=== PATIENT | male | born 1975 | race Caucasian/White ===

== ENCOUNTER 2019-10-07 11:24 | Emergency (ER) | payer MEDICARE, SELFPAY ==
[2019-10-07 11:25] VITALS: BP 190/138; PULSE 116; RESP 17; TEMP 36.2; O2SAT 97; BMI 43.9
--- NOTE | 2019-10-07 11:34 | ED_ITS ---
Entered by Pinky Norman, acting as scribe for Jose Medley DO Oct 07, 2019 11:24 HPI - Back Pain/Injury General: Chief Complaint: Back Pain/Injury Stated Complaint: BACK PAIN Time Seen by Provider: 10/07/19 11:26 History of Present Illness: HPI Narrative: 44 yo male presents with back pain. pt states that he stepped on a rug and he almost fell. Pt states that he has had pain ever since. Pt states that he has issues with sciatica. MD elicited complaint: back injury Onset (ago): day(s) Timing: constant Severity: moderate Quality: sharp Exacerbating factors: walking Associated symptoms: Reports difficulty walking Review of Systems General: Reports: 10 or more systems reviewed and unremarkable except in HPI and below Musc: Reports: back pain and extremity swelling Neuro: Reports: difficulty walking PFS ED PFSH: Medical History (Updated 10/07/19 @ 12:20 by Jose Medley DO) Chronic back pain Renal calculus, left Surgical History (Updated 10/07/19 @ 12:14 by Pinky Norman) History of appendectomy Family History (Updated 09/12/19 @ 10:42 by YARELIS Casillas) Mother Diabetes Father Cancer Leukemia Grandmother Cancer Social History (Updated 09/12/19 @ 10:44 by YARELIS Casillas) Smoking and tobacco status: current every day smoker Alcohol intake: unknown Adopted: No Caregiver/support person: No Lives independently: No Household members: spouse Marital status: Current occupational status: disabled History of recent travel: No Physical Exam Const: COMMON NORMALS: no apparent distress, average body habitus, oriented x3, no limitations, healthy appearing, alert and well nourished HENMT: COMMON NORMALS: normocephalic, head/scalp atraumatic, hearing grossly normal bilaterally, external ears normal, EAC's normal, TM's normal bilaterally, external nose normal, nasal mucous membranes and turbinates normal, moist oral mucous membranes, oropharynx normal, dentition normal and gingiva normal HEAD & SCALP: normocephalic and atraumatic NOSE: external nose normal and nasal mucous membranes and turbinates normal EXTERNAL EAR: Yes external ears normal EXTERNAL AUDITORY CANAL: EAC's normal TYMPANIC MEMBRANE: TM's normal bilaterally Eye: COMMON NORMALS: PERRL, EOMs intact bilaterally, conjunctivae normal, no scleral icterus, no papilledema, normal visual handy by confrontation and fundi normal bilaterally CONJUNCTIVA: Yes conjunctivae normal PUPIL: Yes PERRL DIRECT OPHTHALMOSCOPY: Yes no papilledema and Yes fundi normal bilaterally Neck/C-Spine: COMMON NORMALS: full ROM, no lymphadenopathy, supple, no meningeal signs, no JVD, thyroid normal and no carotid bruits THYROID: thyroid normal Chest: COMMONS NORMALS: inspection of chest normal and palpation of chest normal Resp: COMMON NORMALS: normal respiratory effort, no retractions, no use of accessory muscles, clear to auscultation bilaterally and percussion normal AUSCULTATION: clear to auscultation bilaterally PERCUSSION: percussion normal Cardio: COMMON NORMALS: no JVD, regular rate, regular rhythm, S1 normal heart sound, S2 normal heart sound, no gallops, no clicks, no murmurs, no rub and peripheral pulses 2+ throughout RATE: regular rate RHYTHM: regular rhythm HEART SOUNDS: S1 normal and S2 normal PERIPHERAL PULSES: pulses 2+ throughout GI: COMMON NORMALS: normal to inspection, nondistended, normoactive bowel sounds, soft to palpation, non-tender, no hepatosplenomegaly, no masses and no bruits PALPATION: Yes soft and Yes no hepatosplenomegaly Back/Pelvis: GENERAL BACK: Yes tenderness Extremity: COMMON NORMALS: normal to inspection, full ROM, normal capillary refill, no joint enlargement, no clubbing, cyanosis or edema, no calf tenderness and no pedal edema Neuro: COMMON NORMALS: oriented x3 SENSORIUM/ORIENTATION: Yes alert MENINGEAL SIGNS: Yes no meningeal signs Skin: COMMON NORMALS: no rashes or lesions noted, no wounds, skin turgor normal, no jaundice, no petechiae and no mottling GENERAL SKIN EXAM: no rashes or lesions noted and turgor normal Course Vital Signs: Vital signs: Vital Signs Temperature 97.2 F L 10/07/19 11:25 Pulse Rate 116 H 10/07/19 11:25 Respiratory Rate 17 10/07/19 11:25 Blood Pressure 190/138 10/07/19 11:25 Pulse Oximetry 97 10/07/19 11:25 Discharge Plan Discharge Patient Disposition: Home, Self-Care Clinical Impression: Strain of lumbar region Qualifiers: Encounter type: initial encounter Qualified Code(s): S39.012A - Strain of muscle, fascia and tendon of lower back, initial encounter Condition: Stable Prescriptions: New hydrocodone-acetaminophen 5-325 mg tablet 1 tab PO Q4H PRN (Reason: pain) Qty: 10 RF: 0 Discharge Orders: Discharge Order (Routine); Ordered 10/07/19 Ordered By: Jose Medley Referrals: Abdiel Hilliard MD [Primary Care Provider] - Coding Level of Care Code ED Director Meetings for Chg Fwd Exam Comprehensive The documentation recorded by the Emerson castellano Kialy, accurately reflects the service I personally performed and the decisions made by , Jose Medley, Oct 07, 2019 11:24
--- NOTE | 2019-10-07 11:35 | XR_ITS ---
WS: [id number] XR lumbar spine 2-3V* [id number] REASON FOR EXAM: back pain FINDINGS: 5 functional lumbar vertebra as. The disc spaces and vertebral bodies are normal. There is increased lordosis seen. The lumbosacral angle show degenerate changes of the disc spaces. XR/XR lumbar spine 2-3V* [id number] IMPRESSION: Degenerated disc changes L5-S1 Increased lordosis.
[2019-10-07 12:24] VITALS: RESP 19; O2SAT 95
[2019-10-07] MEDS: morphine 4 mg/mL SDV 1 mL IM (12:24)
[2019-10-07 12:46] VITALS: BP 167/126; PULSE 108; RESP 17; O2SAT 95
== END 2019-10-07 12:46 | disposition home or self-care (01) ==
PROVIDERS: Emergency Provider Family Medicine; PCP Family Medicine
DX: S39.012A Strain of muscle, fascia and tendon of lower back, initial encounter (principal); F17.200 Nicotine dependence, unspecified, uncomplicated; X58.XXXA Exposure to other specified factors, initial encounter
CPT/HCPCS: 12345; 72100; 96372; 99281; 99283; J2270

== ENCOUNTER 2021-01-12 19:32 | Emergency (ER) | payer MEDICARE, SELFPAY ==
[2021-01-12 19:40] VITALS: BP 159/104; PULSE 74; RESP 18; TEMP 36.5; O2SAT 93; BMI 43.9
[2021-01-12 20:23] VITALS: BP 169/115; PULSE 80; RESP 20; O2SAT 94
--- NOTE | 2021-01-12 20:32 | ED_ITS ---
HPI - Abdominal Pain General: Chief Complaint: Abdominal Pain Stated Complaint: ab pain Time Seen by Provider: 01/12/21 19:49 Source: patient Mode of arrival: ambulatory Limitations: no limitations History of Present Illness: HPI narrative: 45-year-old male states that at 6:00 he started having sudden right upper quadrant abdominal pain. He states pain is very sharp in nature and rates it a 8 out of 10 currently. He states it is worse with palpation improved with some rest. Denies any pain with eating. He states he was having nausea. Denies any diarrhea. Denies any radiation of his pain. Associated Symptoms: Reports nausea and vomiting; Denies chills, dysuria and fever(s) Review of Systems Const: Denies: fever(s), chills, body aches or change in appetite Eyes: Denies: blurry vision or eye discomfort ENMT: Denies: throat pain or dental pain Card: Denies: chest pain Resp: Denies: dyspnea GI: Reports: abdominal pain, nausea and vomiting : Denies: dysuria Musc: Denies: neck pain or back pain Skin/Breast: Denies: rash Neuro: Denies: headache(s) Psych: Denies: depression Donovan/Lymph: Denies: easy bruising All/Imm: Denies: urticaria PFSH ED PFSH: Medical History Chronic back pain Renal calculus, left Surgical History History of appendectomy Family History Mother Diabetes Father Cancer Leukemia Grandmother Cancer Social History Smoking and tobacco status: current every day smoker Alcohol intake: unknown Adopted: No Caregiver/support person: No Lives independently: No Household members: spouse Marital status: Current occupational status: disabled History of recent travel: No Physical Exam Const: COMMON NORMALS: no acute distress, patient oriented x3 and healthy appearing HENMT: COMMON NORMALS: normocephalic and atraumatic HEAD & SCALP: normocephalic and atraumatic Eye: COMMON NORMALS: Equal, round and reactive pupils present and EOMs intact bilaterally PUPIL: Yes Equal, round and reactive pupils present Neck/C-Spine: COMMON NORMALS: full ROM and supple Chest: COMMONS NORMALS: normal inspection of the chest and normal palpation of entire chest wall Resp: COMMON NORMALS: normal respiratory effort, No retractions, No use of accessory muscles and clear to auscultation bilaterally AUSCULTATION: clear to auscultation bilaterally Cardio: COMMON NORMALS: regular rate, regular rhythm and No murmurs present (Cardio) RATE: regular rate RHYTHM: regular rhythm GI: COMMON NORMALS: Normal to inspection, nondistended, normoactive bowel sounds present, Soft to palpation and no masses PALPATION: Yes Soft to palpation and Yes Tenderness to palpation present (GI) Details: RUQ Extremity: COMMON NORMALS: normal to inspection and full ROM Neuro: COMMON NORMALS: patient oriented x3, moves all extremities and no focal motor deficits Psych: COMMON NORMALS: mental status grossly normal, Normal thought process present and cooperative THOUGHT PROCESS: Normal thought process present Skin: COMMON NORMALS: no rashes or lesions noted and no wounds GENERAL SKIN EXAM: no rashes or lesions noted Course Vital Signs: Vital signs: Vital Signs Temperature 97.7 F 01/12/21 19:40 Pulse Rate 78 01/12/21 22:07 Respiratory Rate 16 01/12/21 22:07 Blood Pressure 130/84 01/12/21 22:07 Pulse Oximetry 98 01/12/21 22:07 MDM - Abdominal Pain MDM Narrative: Medical decision making narrative: Patient presents here with abdominal pain likely from his gallstone. He has no signs of cholecystitis. His pain is much improved at discharge and will set him follow-up with surgery. He is to return if worsening. He understands agrees to plan. Lab Data: Labs: Lab Results 01/12/21 01/12/21 Range/Units 20:29 20:29 WBC 6.5 (4.0-10.0) 10^3/ uL RBC 5.16 (4.1-5.3) 10^6/u L Hgb 16.8 H (11.7-16.6) g/dL Hct 49.6 (42.0-52.0) % MCV 96.1 H (80-94) fL MCH 32.6 (28.0-34.0) pg MCHC 33.9 (30.0-36.0) g/dL RDW 12.5 (12.1-15.1) % Plt Count 231 (130-400) 10^3/c mm MPV 9.9 (7.4-10.4) fL Neut % (Auto) 60.7 % Lymph % (Auto) 27.0 % Baxter % (Auto) 9.3 % Eos % (Auto) 1.4 % Baso % (Auto) 1.1 % Neut # (Auto) 3.92 (1.8-7.7) 10^3/u L Lymph # (Auto) 1.7 (0.8-4.8) 10^3/u L Baxter # (Auto) 0.6 (0.2-0.9) 10^3/u L Eos # (Auto) 0.1 (0.0-0.8) 10^3/u L Baso # (Auto) 0.1 (0.0-0.1) 10^3/u L Nucleated RBC % (a uto) 0 % Nucleated RBCs # 0.0 /100WBC Sodium 136 (136-145) mmol/L Potassium 4.4 (3.5-5.1) mmol/L Chloride 100 (98-107) mmol/L Carbon Dioxide 27 (22-29) mmol/L Anion Gap 13.4 (5-19) BUN 6 (6-20) mg/dL Creatinine 0.7 (0.7-1.2) mg/dL GFR Calculation 122.5 (90-130) mL/min Glucose 201 H (65-115) mg/dL Calculated Osmolal ity 285 (285-295) mOsm/k g Calcium 8.9 (8.5-10.5) mg/dL Total Bilirubin 0.5 (0.15-1.2) mg/dL AST 25 (0-40) U/L ALT 32 (0-41) U/L Alkaline Phosphata se 104 (40-130) IU/L Total Protein 6.7 (6.6-8.7) g/dL Albumin 4.4 (3.5-5.2) g/dL Globulin 2.3 (1.3-4.6) g/dL Lipase 16 (13-60) U/L Imaging Data ^: CT Abd/Pel: Radiologist's impression: [address] [place] [address] CT Scan Report Signed Patient: Bobby Villasenor Unit #: [id number] : 1975 Age/Sex: 45 / M ADM Date: 01/12/21 Loc: ER Room/Bed: Attending Dr: Ordering Provider/Ordering MD: Debbie Bird MD Date of Service: 01/12/21 Procedure(s): CT abdomen pelvis w con* [id number] Accession Number(s): [id number] Report Number: [id number] PROCEDURE INFORMATION: Exam: CT Abdomen And Pelvis With Contrast Exam date and time: 01/12/2021 9:07 PM Age: 45 years old Clinical indication: Nausea and vomiting; Abdominal pain; Prior surgery; Surgery type: Appy; Patient HX: HX kidney stone; Additional info: Abd pain TECHNIQUE: Imaging protocol: Computed tomography of the abdomen and pelvis with contrast. Radiation optimization: All CT scans at this facility use at least one of these dose optimization techniques: automated exposure control; mA and/or kV adjustment per patient size (includes targeted exams where dose is matched to clinical indication); or iterative reconstruction. Contrast material: OMNI 300; Contrast volume: 95 ml; Contrast route: INTRAVENOUS (IV); COMPARISON: CT Abdomen/Pelvis Renal [id number] 09/18/2018 1:57 AM RADIATION DOSE METRICS: Total DLP (mGy-cm): 2051.17 FINDINGS: Liver: Fatty liver. Gallbladder and bile ducts: Peripherally calcified stone noted in the gallbladder neck. No wall thickening. No pericholecystic fluid or stranding. There is no intrahepatic or extrahepatic biliary ductal dilation. Pancreas: No ductal dilation. Spleen: No splenomegaly. Adrenal glands: Normal. No mass. Kidneys and ureters: Focal defect noted in the midpole of the right kidney. Patchy areas of enhancement noted in the mid to lower pole of the right kidney seen on axial image 45. No significant perinephric stranding. Unremarkable appearance of the left kidney. No hydronephrosis. Stomach and bowel: Colonic diverticulosis without findings of diverticulitis. No dilated bowel loops. No high-grade obstruction. Appendix: The appendix is not identified. Surgical clips are noted in the right lower quadrant. Correlate with history of previous appendectomy. Intraperitoneal space: No free air. No significant fluid collection. Vasculature: No abdominal aortic aneurysm. Lymph nodes: No enlarged lymph nodes. Urinary bladder: Unremarkable as visualized. Reproductive: Unremarkable as visualized. Bones/joints: Degenerative changes noted at L5-S1. Soft tissues: Small fat containing umbilical hernia. CT/CT abdomen pelvis w con* [id number] IMPRESSION: 1. Cholelithiasis without CT findings of acute cholecystitis. 2. Patchy areas of enhancement noted in the mid to lower pole of the right kidney seen on axial image 45. No significant perinephric stranding. Findings may be incidental or possibly due to early changes of pyelonephritis in the appropriate clinical context. Radiation Dose CTDIVOL = (mGy): DLP = 2052.17 (mGy-cm) Dictated By: Fredis Rick MD Signed By: Fredis Rick MD Signed Date/Time: 01/12/212208 DD/ 05 US: Attestation: I personally reviewed and interpreted this imaging study as follows: Radiologist's impression: [address] [address] Ultrasound Report Signed Patient: Bobby Villasenor Unit #: [id number] : 1975 Age/Sex: 45 / M ADM Date: 01/12/21 Loc: ER Room/Bed: Attending Dr: Ordering Provider/Ordering MD: Debbie Bird MD Date of Service: 01/12/21 Procedure(s): US gall bladder [id number] Accession Number(s): [id number] Report Number: [id number] PROCEDURE INFORMATION: Exam: US Abdomen, Limited; Right Upper Quadrant Exam date and time: 01/12/2021 8:30 PM Age: 45 years old Clinical indication: Abdominal pain; Acute; Additional info: Ruq pain TECHNIQUE: Imaging protocol: US abdomen. Real time ultrasound with image documentation. Limited exam focused on the right upper quadrant. COMPARISON: CT Abdomen/Pelvis Renal [id number] 09/18/2018 1:57 AM FINDINGS: Liver: There is fatty liver. Gallbladder: There is a 2.3 cm stone in the gallbladder neck. No wall thickening. Reported positive sonographic Montoya sign. No pericholecystic fluid. Common bile duct: No stones. No dilation. Pancreas: Visualized pancreas is unremarkable. Right kidney: No mass. No hydronephrosis. US/US gall bladder [id number] IMPRESSION: Cholelithiasis with reported positive sonographic Montoya sign. Dictated By: Fredis Rick MD Signed By: Fredis Rick MD Signed Date/Time: 01/12/212203 Discharge Plan Discharge Patient Disposition: Home Clinical Impression: Biliary colic Gall stone Qualifiers: Cholecystitis presence: without cholecystitis Biliary obstruction: without biliary obstruction Qualified Code(s): K80.20 - Calculus of gallbladder without cholecystitis without obstruction Condition: Stable Prescriptions: New hydrocodone-acetaminophen 5-325 mg tablet 1 tab PO Q6H PRN (Reason: pain) Qty: 14 RF: 0 ondansetron 4 mg tablet,disintegrating 4 mg PO Q6H PRN (Reason: nausea and vomiting) Qty: 14 RF: 0 No Action hydrocodone-acetaminophen 5-325 mg tablet 1 tab PO Q4H PRN (Reason: pain) Qty: 10 RF: 0 Discharge Orders: Discharge ED (Routine); Ordered 01/12/21 Ordered By: Debbie Bird Referrals: Abdiel Hilliard MD [Primary Care Provider] - Rickey Almendarez MD [Physician] - 1-3 days Discharge Diet: Advance as tolerated Discharge Activity: Resume usual activity Patient Instructions: Biliary Colic (ED) Coding Level of Care Code ED [facility] Manager for Chg Fwd Exam Comprehensive
[2021-01-12 20:33] LABS: Basophils # 0.1 10^3/uL (0.0-0.1); Basophils % 1.1 %; Eosinophils # 0.1 10^3/uL (0.0-0.8); Eosinophils % 1.4 %; Hematocrit 49.6 % (42.0-52.0); Hemoglobin 16.8 g/dL (11.7-16.6); Lymphocytes # 1.7 10^3/uL (0.8-4.8); Mean Corpuscular HGB Conc 33.9 g/dL (30.0-36.0); Mean Corpuscular Hemoglobin 32.6 pg (28.0-34.0); Mean Corpuscular Volume 96.1 fL (80-94); Mean Platelet Volume 9.9 fL (7.4-10.4); Monocytes # 0.6 10^3/uL (0.2-0.9); Monocytes % 9.3 %; Neutrophils # 3.92 10^3/uL (1.8-7.7); Neutrophils % 60.7 %; Nucleated Red Blood Cells % 0 %; Platelet Count 231 10^3/cmm (130-400); Red Blood Count 5.16 10^6/uL (4.1-5.3); Red Cell Distribution Width 12.5 % (12.1-15.1); White Blood Count 6.5 10^3/uL (4.0-10.0)
[2021-01-12 20:56] LABS: Alanine Aminotransferase 32 U/L (0-41); Albumin Level 4.4 g/dL (3.5-5.2); Alkaline Phosphatase 104 IU/L (40-130); Blood Urea Nitrogen 6 mg/dL (6-20); Calcium 8.9 mg/dL (8.5-10.5); Carbon Dioxide 27 mmol/L (22-29); Chloride 100 mmol/L (98-107); Globulin 2.3 g/dL (1.3-4.6); Glomerular Filtration Rate 122.5 mL/min (90-130); Glucose 201 mg/dL (65-115); Lipase 16 U/L (13-60); Osmolality Calculated 285 mOsm/kg (285-295); Sodium 136 mmol/L (136-145); Total Bilirubin 0.5 mg/dL (0.15-1.2); Total Protein 6.7 g/dL (6.6-8.7)
[2021-01-12 21:02] LABS: Anion Gap 13.4 (5-19); Potassium 4.4 mmol/L (3.5-5.1)
[2021-01-12 21:03] LABS: Aspartate Amino Transferase 25 U/L (0-40)
[2021-01-12 21:06] VITALS: BP 184/143; PULSE 76; RESP 18; O2SAT 94
[2021-01-12 21:07] VITALS: RESP 18; O2SAT 98
[2021-01-12] MEDS: ondansetron 2 mg/ML SDV 2 mL 4 MG IVP (21:07)
[2021-01-12] MEDS: HYDROmorphone 1 mg/mL INJ 1 mL IVP (21:07)
--- NOTE | 2021-01-12 21:07 | CTR_ITS ---
PROCEDURE INFORMATION: Exam: CT Abdomen And Pelvis With Contrast Exam date and time: 01/12/2021 9:07 PM Age: 45 years old Clinical indication: Nausea and vomiting; Abdominal pain; Prior surgery; Surgery type: Appy; Patient HX: HX kidney stone; Additional info: Abd pain TECHNIQUE: Imaging protocol: Computed tomography of the abdomen and pelvis with contrast. Radiation optimization: All CT scans at this facility use at least one of these dose optimization techniques: automated exposure control; mA and/or kV adjustment per patient size (includes targeted exams where dose is matched to clinical indication); or iterative reconstruction. Contrast material: OMNI 300; Contrast volume: 95 ml; Contrast route: INTRAVENOUS (IV); COMPARISON: CT Abdomen/Pelvis Renal [id number] 09/18/2018 1:57 AM RADIATION DOSE METRICS: Total DLP (mGy-cm): 2051. FINDINGS: Liver: Fatty liver. Gallbladder and bile ducts: Peripherally calcified stone noted in the gallbladder neck. No wall thickening. No pericholecystic fluid or stranding. There is no intrahepatic or extrahepatic biliary ductal dilation. Pancreas: No ductal dilation. Spleen: No splenomegaly. Adrenal glands: Normal. No mass. Kidneys and ureters: Focal defect noted in the midpole of the right kidney. Patchy areas of enhancement noted in the mid to lower pole of the right kidney seen on axial image 45. No significant perinephric stranding. Unremarkable appearance of the left kidney. No hydronephrosis. Stomach and bowel: Colonic diverticulosis without findings of diverticulitis. No dilated bowel loops. No high-grade obstruction. Appendix: The appendix is not identified. Surgical clips are noted in the right lower quadrant. Correlate with history of previous appendectomy. Intraperitoneal space: No free air. No significant fluid collection. Vasculature: No abdominal aortic aneurysm. Lymph nodes: No enlarged lymph nodes. Urinary bladder: Unremarkable as visualized. Reproductive: Unremarkable as visualized. Bones/joints: Degenerative changes noted at L5-S1. Soft tissues: Small fat containing umbilical hernia. CT/CT abdomen pelvis w con* [id number] IMPRESSION: 1. Cholelithiasis without CT findings of acute cholecystitis. 2. Patchy areas of enhancement noted in the mid to lower pole of the right kidney seen on axial image 45. No significant perinephric stranding. Findings may be incidental or possibly due to early changes of pyelonephritis in the appropriate clinical context. Radiation Dose CTDIVOL = (mGy): DLP = 2052.17 (mGy-cm)
[2021-01-12] MEDS: iohexol 300 mg/mL 100 mL Btl IV (21:17)
[2021-01-12 22:07] VITALS: BP 130/84; PULSE 78; RESP 16; O2SAT 98
[2021-01-12 22:24] VITALS: BP 130/84; PULSE 72; RESP 16; O2SAT 94
--- NOTE | 2021-01-13 08:12 | PC.SOCIAL ---
Gen surgery emailed regarding referral per Dr Bird to [facility] Gall[facility]
--- NOTE | 2021-01-28 13:49 | DCPLANNER ---
Patient had a follow up appointment scheduled for 01.26.[address] Almendarez at [facility] General Surgery - patient did attend appointment.
== END 2021-01-12 22:25 | disposition home or self-care (01) ==
PROVIDERS: Emergency Provider Emergency Medicine; PCP Family Medicine
DX: K80.20 Calculus of gallbladder without cholecystitis without obstruction (principal); F17.210 Nicotine dependence, cigarettes, uncomplicated
CPT/HCPCS: 74177; 76705; 80053; 83690; 85025; 96374; 96375; 99284; J1170; J2405; Q9967

== ENCOUNTER → 2021-01-26 12:47 | Outpatient (BNVA) | payer MEDICARE, SELFPAY | PROVIDERS: PCP Family Medicine; Visit Provider Surgery | DX: K80.20 Calculus of gallbladder without cholecystitis without obstruction (principal); Z11.52 Encounter for screening for COVID-19 | CPT/HCPCS: 87635 ==

== ENCOUNTER 2021-01-28 08:42 | Day surgery (SDC) | payer MEDICARE, SELFPAY ==
[2021-01-27 18:02] VITALS: BMI 45.9
[2021-01-28] VITALS (9 sets, daily range): BP systolic 138–168; BP diastolic 95–111; PULSE 79–93; RESP 12–18; TEMP 36.3–36.9; O2SAT 92–97
[2021-01-28] MEDS: sodium chloride 0.9% 1,000 ML 30 ML IV (09:36)
--- NOTE | 2021-01-28 10:13 | P.ANESASSM_ITS ---
Pre-Anesthetic Assessment Pre-Anesthetic Assessment: Height/Weight: Height 1.78 m Weight 145.15 kg Temp Pulse Resp BP Pulse Ox 97.9 F 93 18 146/111 96 01/28/21 09:12 01/28/21 09:12 01/28/21 09:12 01/28/21 09:12 01/28/21 09:12 Preop Diagnosis: Cholelithiasis Proposed Procedure: Operation Date: 01/28/21 10:25 Proposed Procedures p Laparoscopic Cholecystectomy 50441 K80.20(Not Applicable) - Rickey Almendarez MD Was Beta Eddie taken within 24 hours: N/A Was Clonidine taken within 24 hours: N/A Last intake: Intake Last Liquid Date 01/27/21 Last Liquid Time 20:00 Last Solid Date 01/27/21 Last Solid Time 20:00 Social: Social History: No alcohol and No tobacco Exam: Pre-Anes Outpt Exam: alert, oriented x 3, clear to auscultation bilate rally and regular rate & rhythm Airway: Submandibular: WNL Cervical ROM: WNL MP: 3 Dentition: Chipped and Loose Additional comments: poor dentition Anesthetic Plan: ASA status: 3 Anesthesia: General Risk of > 500 ml blood loss (7ml/kg in children): No Meds/Allergies Current Medications: Current Medications Generic Name Dose Route Start Last Admin Trade Name Freq PRN Reason Stop Dose Admin Sodium Chloride 1,000 mls @ 30 ml s/hr 01/28/21 09:15 01/28/21 09:36 Sodium Chloride 0.9% IV 01/29/21 09:14 30 mls/hr .Q24H VINCENZO Administration PFSH Anesthesia PFSH: Medical History Chronic back pain Renal calculus, left Surgical History History of appendectomy Family History Mother Diabetes Father Cancer Leukemia Grandmother Cancer Social History Smoking and tobacco status: never smoked Alcohol intake: unknown Adopted: No Caregiver/support person: No Lives independently: No Household members: spouse Marital status: Current occupational status: disabled History of recent travel: No Data Anesthesia Cardiac Studies: No Data to Display
--- NOTE | 2021-01-28 10:18 | W.PM.OPSUD ---
Surgery/Procedure H&P Update DATE OF PROCEDURE: January 28, 2021 DATE H&P PERFORMED: 01/26/21 H&P UPDATE INFORMATION: I have reviewed H&P completed within last 30 days, I have examined patient prior to procedure and No changes to prior documentation PREOP DIAGNOSIS: Cholelithiasis PLANNED PROCEDURE: Operation Date: 01/28/21 10:25 Proposed Procedures p Laparoscopic Cholecystectomy 76456 K80.20(Not Applicable) - Rickey Almendarez MD
[2021-01-28] MEDS: levofloxacin-dextrose 5 % 750 MG/150 ML PREMIX 100 MG IV (13:05)
--- NOTE | 2021-01-28 13:58 | PM.OP ---
Operative Report Date of procedure: January 28, 2021 Pre-op Diagnosis: Cholelithiasis Post-op Diagnosis: Cholelithiasis Hepatomegaly BMI 45.9 Procedure Done: Laparoscopic cholecystectomy Specimens removed/disposition: Gallbladder Surgeon: Rickey Almendarez Anesthesia: General Condition: stable Disposition: PACU Procedure: The patient was taken to the operating room and was intubated under general anesthesia. After the antibiotic had been administered, the abdomen was prepped and draped in a sterile manner. Using a #15 blade, a 1 centimeter infraumbilical curvilinear incision was made and using an open Germain technique the peritoneal cavity was entered. A 10 millimeter port was placed and 15 millimeters of pneumoperitoneum was created. A 10 millimeter, 30 degrees scope was then introduced. Three 5 millimeter ports were placed in the epigastric, midclavicular and the anterior axillary line two fingerbreadths below the costal margin on the right side under the direct visualization. Ratcheted forceps were introduced into the lateral most port and was used to retract the fundus of the gallbladder cephalad and using forceps the infundibulum of the gallbladder was retracted laterally. Using L-hook cautery the peritoneum overlying the Calot's triangle was opened medially and laterally until the cystic duct and the cystic artery were skeletonized. Dissection was carried along the body of the gallbladder and after ensuring critical view of safety, 4 clips applied on the cystic duct and cut leaving, 3 clips on the remaining portion of the duct. The cystic artery was small and was cauterized. The rest of the gallbladder was dissected off the liver using L-hook cautery. There was a small opening in the body of the gallbladder with spillage of bile which was suctioned. There was spillage of 1 stone which was retrieved. There was no bleeding or bile leaking noted from the gallbladder fossa and the clips appeared to be in place. An EndoCatch bag was introduced to remove the gallbladder. All the ports were removed under direct visualization and there was no bleeding noted from the port sites. The fascia of the umbilicus was closed using [id number] 0 Vicryl sutures and the subcutaneous tissue was approximated using 3-0 Vicryl sutures. The skin at all four ports were closed using 4-0 Monocryl and Dermabond. A total of 10 millimeters of 0.5% Marcaine was infiltrated around the port sites. The patient was stable throughout the procedure.
--- NOTE | 2021-01-28 14:38 | ECG_ITS ---
[facility] Test Date: 2021-01-28 Pat Name: Bobby Villasenor Department: Room: Gender: Male Ed Case Manager: : 1975 Requested By: Suresh Braga Order Number: [id number] Vega MD: Marielle Amaya M.D. Measurements Intervals [place] Rate: 78 P: 52 DC: 186 QRS: -25 QRSD: 115 T: 60 QT: 378 QTc: 431 Interpretive Statements SINUS RHYTHM BORDERLINE LEFT AXIS DEVIATION [QRS AXIS < -20] MODERATE INTRAVENTRICULAR CONDUCTION DELAY [110+ ms QRS DURATION] No previous ECG available for comparison Electronically Signed On 01-28-2021 21:42:01 CDT by Marielle Amaya M.D. [email or web address]
[2021-01-28] MEDS: HYDROmorphone 1 mg/mL INJ 1 mL 0.5 MG IVP (14:52)
[2021-01-28] MEDS: morphine 4 mg/mL SDV 1 mL IVP (15:38)
[2021-01-28] MEDS: HYDROcodone-acetaminophen 5-325 mg Tablet 1 TAB PO (15:54)
--- NOTE | 2021-01-28 17:16 | ANE.PACU2 ---
Inpatient post-anesthesia follow up: Airway intact: Yes Vital signs: Temperature 97.3 F Pulse Rate 79 Respiratory Rate 18 Blood Pressure 138/96 Pulse Oximetry 93 Oxygen Delivery Me thod Room Air Oxygen Flow Rate 6 Fraction of Inspir ed Oxygen Hydration adequate: Yes Nausea and vomiting: No Pain level: 4 Mental status: Baseline
== END 2021-01-28 16:25 | disposition home or self-care (01) ==
PROVIDERS: PCP Family Medicine; Visit Provider Surgery
PROC: 0FT44ZZ Resection of Gallbladder, Percutaneous Endoscopic Approach (ICD-10-PCS; CPT 47562; principal; 2021-01-28 10:15)
DX: K80.10 Calculus of gallbladder with chronic cholecystitis without obstruction (principal)
CPT/HCPCS: 47562; 88304; 93005; 96365; J1170; J1956; J2270; J2704; J2710; J3010; J3490; J7030

== ENCOUNTER → 2023-10-13 15:32 | Outpatient (BNVA) | payer MEDICARE, SELFPAY | PROVIDERS: PCP Family Medicine; Referring Provider Family Medicine; Visit Provider Internal Medicine Cardiovascular Disease | DX: R07.9 Chest pain, unspecified (principal); R06.02 Shortness of breath; I10 Essential (primary) hypertension; E66.01 Morbid (severe) obesity due to excess calories; Z68.41 Body mass index [BMI] 40.0-44.9, adult | CPT/HCPCS: 93005; 99204 ==

== ENCOUNTER 2023-10-21 06:52 | Outpatient (CLI) | payer MEDICARE, SELFPAY ==
--- NOTE | 2023-10-21 07:15 | USCV_ITS ---
Bobby Villasenor Age: 48 Gender: M : 1975 Exam Date: 10/21/2023 07:11 Ordering Phys: Marty Brooks MD ([email or web address]) Technologist: JULISSA [place] [facility] [place]: CHEST PAIN/HTN BP: 121 / 81 HR: 78 Rhythm: Sinus Technical Quality: Adequate MEASUREMENTS (Male / Female) Normal Values 2D ECHO LV Diastolic Diameter PLAX 4.5 cm 4.2 - 5.9 / 3.9 - 5.3 cm IVS Diastolic Thickness 1.6 cm 0.6 - 1.0 / 0.6 - 0.9 cm IVS Systolic Thickness 2.3 cm LVPW Diastolic Thickness 1.9 cm 0.6 - 1.0 / 0.6 - 0.9 cm LVPW Systolic Thickness 2.5 cm LVOT Diameter 2.0 cm LV Ejection Fraction 2D Teich 52.9 % LV Ejection Fraction MOD 2C 59.4 % LV Ejection Fraction 2C AL 59.9 % LA Diameter 3.0 cm RA Systolic Volume 4C AL 28.1 ml RA Systolic Volume 4C MOD 27.3 ml Aorta at Sinotubular Diameter 2.9 cm IVC Diameter 1.9 cm M-MODE LA Ao Ratio MM 0.8 AV Cusp Separation MM 2.2 cm DOPPLER AV Peak Velocity 117.0 cm/s LVOT Peak Velocity 78.0 cm/s AV Area Cont Eq vti 2.3 cm squared AV Area Cont Eq pk 2.2 cm squared MV Peak Velocity 69.0 cm/s MV Area PHT 3.4 cm squared Mitral E to A Ratio 1.2 TR Peak Velocity 155.0 cm/s TR Peak Gradient 9.6 mmHg TR Mean Velocity 140.0 cm/s TR Mean Gradient 8.0 mmHg TR Velocity Time Integral 40.1 cm TV Peak E Velocity 58.0 cm/s Right Atrial Pressure 3.0 mmHg Pulmonary Artery Systolic Pressu 12.6 mmHg PV Peak Velocity 113.0 cm/s RV Ejection Time 0.3 s FINDINGS Left Ventricle Normal left ventricular size and systolic function, EF 60% . Moderate left ventricular hypertrophy. No regional wall motion abnormalities. Right Ventricle The right ventricle is normal in size and function. Right Atrium The right atrium is normal in size. Left Atrium The left atrium is normal in size. Mitral Valve No gross abnormalities noted Aortic Valve No gross abnormalities noted . Tricuspid Valve No gross abnormalities noted Pulmonic Valve Mild pulmonary valve regurgitation. Pericardium Normal pericardium without effusion. Aorta Normal ascending aorta dimension. IVC The inferior vena cava appears normal. CONCLUSIONS Normal left ventricular size and systolic function, EF 60% . Moderate left ventricular hypertrophy. No regional wall motion abnormalities. Normal cardiac chamber sizes. Mild pulmonary valve regurgitation. There is no pericardial effusion. There are no intracardiac masses. No similar previous studies are available for comparison Dr Marty Brooks MD FACC (Electronically Signed) Final Date: 24 October 2023 11:45 S
== END 2023-10-21 06:53 | disposition home or self-care (01) ==
LOC: RAD 06:52
PROVIDERS: PCP Family Medicine; Visit Provider Internal Medicine Cardiovascular Disease
DX: I37.1 Nonrheumatic pulmonary valve insufficiency (principal)
CPT/HCPCS: 93306